=== PATIENT | male | born 1945 | race Caucasian/White ===

== ENCOUNTER 2018-08-12 06:04 | Day surgery (SDC) | payer MEDICARE, OTHER ==
[2018-08-12] MEDS ORDERED: DIPRIVAN 200 MG/20 ML IV ONE (06:05)
[2018-08-12] MEDS ORDERED: Ketamine HCl 50 MG/ML IV ONE (06:05)
[2018-08-12] MEDS: Lactated Ringers 1,000 ML IV SCH ×2 (06:41→06:42)
[2018-08-12 09:14] VITALS: O2SAT 97
[2018-08-12 09:36] VITALS: BP 93/54; PULSE 63
[2018-08-12] MEDS ORDERED: Lactated Ringers 1,000 ML IV ONE (09:47)
--- NOTE | 2018-08-14 10:05 | OP ---
SURGERY DATE/TIME: 08/12/2018 0823 PREOPERATIVE DIAGNOSIS: Ten year screening. The patient has also recent had some blood per rectum probably hemorrhoidal. POSTOPERATIVE DIAGNOSIS: Findings of four mild to moderate internal hemorrhoids. No polyps. No mucosal lesions. PROCEDURE: Colonoscopy complete to cecum. SURGEON: Yossi Crocker M.D. ANESTHESIA: MAC. COMPLICATIONS: None. CONDITION: Stable. INDICATION: A patient presents for ten year follow up. He recently has had some blood per rectum. DESCRIPTION OF PROCEDURE: He is taken to endoscopy. Left lateral decubitus position. Anal digital examination satisfactory. Prostate is not large and is smooth. He has had some prostate issues in the past year. Scope advanced to the cecum. Base of cecum, ileocecal valve and appendiceal orifice, ascending, hepatic, transverse, splenic, descending, sigmoid, rectum, anus, three to four mild to moderate size internal hemorrhoids. I think these clearly have been recently bleeding and were the source of the bleeding. There was some angulation and meandering of the sigmoid but there was minimal diverticulosis. No mucosal lesions. Follow up anticipated in ten years unless symptoms.
--- NOTE | 2018-08-14 11:22 | HP ---
DATE OF SURGERY: 08/12/2018 ADMISSION DIAGNOSIS: Blood in the stool. Ten year follow up. ANTICIPATED PROCEDURE: Colonoscopy. HISTORY OF PRESENT ILLNESS: The patient has hemorrhoids done some time ago. His last colonoscopy was ten years ago. He basically presents for screening but he has had a little bit of blood. PAST MEDICAL HISTORY: ALLERGIES: NONE. MEDICATIONS: Metoprolol, lisinopril, arthritic medicines. PAST SURGICAL HISTORY: Hemorrhoidectomy. Knee surgery. SOCIAL HISTORY: Negative. FAMILY HISTORY: Negative. REVIEW OF SYSTEMS: Hypertension. PHYSICAL EXAMINATION: VITAL SIGNS: Normal. CHEST: Clear. COR: Regular. ABDOMEN: Satisfactory. IMPRESSION/PLAN: Colonoscopy.
== END 2018-08-12 09:35 | disposition home or self-care (01) ==
LOC: SDC 06:04
PROVIDERS: ATTEND Surgery
DX: Z12.11 Encounter for screening for malignant neoplasm of colon (principal); K64.8 Other hemorrhoids; K92.1 Melena
CPT/HCPCS: 99100; J2704

== ENCOUNTER 2024-01-08 12:31 | Emergency (ER) | payer MEDICARE, OTHER ==
[2024-01-08 12:40] VITALS: TEMP 98.3
--- NOTE | 2024-01-08 13:15 | ERPHSYRPT ---
- History of Present Illness Time Seen by Provider: 01/08/24 13:00 Source: patient Exam Limitations: no limitations Patient Subjective Stated Complaint: Pt c/o of palpatations Triage Nursing Assessment: Pt brought to the ER by his , hypertensive, denies pain, pulses normal, skin n/w/d, no difficulty breathing, doesn't appear to be in any distress Physician History: The patient, with a long-standing history of irregular heartbeat, presents with a recurrence of the same. The patient has been managed on Metoprolol 5mg twice daily for years. Lisinopril was also part of the regimen but was discontinued a couple of months ago due to episodes of low blood pressure. The patient reports that the current episode of irregular heartbeat started around the same time he was put on Prednisone and Celebrex for shoulder pain. The patient has a history of shoulder injuries, with recent pain in one shoulder leading to the prescription of these medications. The patient also has a long-term history of taking Diclofenac for pain management. Timing/Duration: today Activities at Onset: rest Quality: other (na) Chest Pain Radiation: no radiation Severity of Pain-Max: none Severity of Pain-Current: none Modifying Factors: Worsens With: nothing Nitro Today/Relief: no nitro taken today Aspirin Treatment Today: no aspirin today Associated Symptoms: denies symptoms Prior Chest Pain/Cardiac Workup: no prior chest pain Allergies/Adverse Reactions: Penicillins Allergy (Intermediate, Verified 01/08/24 12:40) Hives Home Medications: Lisinopril 5 mg PO DAILY 04/05/12 [History] Omeprazole [Prilosec] 10 mg PO DAILY 04/05/12 [History] Aspirin 81 mg PO DAILY 04/10/15 [History] Celecoxib 200 mg PO BID 01/08/24 [History] Metoprolol Tartrate 50 mg [Lopressor 50 MG] 50 mg PO BID 01/08/24 [Hi story] Pravastatin Sodium 20 mg PO DAILY 01/08/24 [History] Tamsulosin HCl 0.4 mg [Flomax 0.4 MG] 0.4 mg PO DAILY 01/08/24 [History] Valacyclovir HCl [Valacyclovir] 500 mg PO DAILY 01/08/24 [History] Hx Influenza Vaccination/Date Given: Yes Hx Pneumococcal Vaccination/Date Given: No Travel Risk - International Travel Have you traveled outside of the country in past 3 weeks: No - Emerging Infectious Disease Are you exhibiting symptoms associated with any current EIDs: No - Review of Systems All Other Systems: Reviewed and Negative - Past Medical History Pertinent Past Medical History: Yes Neurological History: No Pertinent History ENT History: No Pertinent History Cardiac History: Arrhythmia, High Cholesterol, Hypertension Respiratory History: No Pertinent History Endocrine Medical History: No Pertinent History Musculoskeletal History: Osteoarthritis GI Medical History: GERD History: No Pertinent History Psycho-Social History: No Pertinent History Male Reproductive Disorders: No Pertinent History Other Medical History: A-FIB. RIGHT TOTAL KNEE 04/2022. LEFT ROTATOR CUFF REPAIR AND BICEPS TENODESIS 09/2021. - Past Surgical History Past Surgical History: Yes Neuro Surgical History: No Pertinent History Cardiac: No Pertinent History, Cardiac Catheterization Respiratory: No Pertinent History Gastrointestinal: Appendectomy, Hemorrhoidectomy Genitourinary: No Pertinent History Musculoskeletal: Orthopedic Surgery Male Surgical History: No Pertinent History Other Surgical History: bilateral knee repairs in - 60's,80's - Social History Smoking Status: Never smoker Exposure to second hand smoke: No Drug Use: none - Social Determinants of Health Will the patient participate in the screening: Yes Do you worry about a steady place to live?: No Do you have any problems with any of the following?: No known problems In the past 12 months,have you had to go without utilities?: No Transportation Issues: No Has anyone in your support network made you feel unsafe?: No Have you or anyone in your house had to go without enough: No - Nursing Vital Signs Nursing Vital Signs: Initial Vital Signs Pulse Rate 63 01/08/24 12:31 Respiratory Rate 14 01/08/24 12:31 Blood Pressure 168/100 01/08/24 12:31 O2 Sat by Pulse Oximetry 93 L 01/08/24 12:31 Pain Scale Pain Intensity 0 - Physical Exam General Appearance: no apparent distress Eye Exam: PERRL/EOMI Ears, Nose, Throat Exam: normal ENT inspection Neck Exam: normal inspection Respiratory Exam: normal breath sounds, lungs clear, airway intact, No respiratory distress Cardiovascular Exam: irregular, capillary refill <2 sec, No edema Gastrointestinal/Abdomen Exam: soft, No tenderness, No distention, No mass, No guarding, No rebound Extremity Exam: No swelling, No tenderness Neurologic Exam: alert, oriented x 3, cooperative Skin Exam: normal color, warm, dry, No rash SpO2 Interpretation: normal SpO2: 93 O2 Delivery: Room Air - Course Nursing assessment & vital signs reviewed: Yes Ordered Tests: Active Orders 24 hr Category Date Time Status Cutting Pressman STAT Care 01/08/24 13:08 Active IV Insertion STAT Care 01/08/24 13:07 Active CBC W DIFF Stat Lab 01/08/24 13:17 Completed CMP Stat Lab 01/08/24 13:17 Completed MAGNESIUM Stat Lab 01/08/24 13:17 Completed NT PRO BNPII Stat Lab 01/08/24 13:17 Completed TROPONIN Q4H Lab 01/08/24 13:17 Completed TROPONIN Q4H Lab 01/08/24 17:15 Ordered TROPONIN Q4H Lab 01/08/24 21:15 Ordered TSH [TSH, 3RD Generation] Stat Lab 01/08/24 13:17 Received Holter Monitor ONCE RT 01/08/24 15:07 Ordered Medication Summary Discontinued Medications Generic Name Dose Route Start Last Admin Trade Name Loydq PRN Reason Stop Dose Admin Enalaprilat 2.5 mg 01/08/24 13:09 01/08/24 13:22 Enalaprilat 2.5 Mg Injection IV 01/08/24 13:10 2.5 mg STAT ONE Administration Enalaprilat Confirm 01/08/24 13:19 Enalaprilat 2.5 Mg Injection Administered 01/08/24 13:20 Dose 2.5 mg IV .STK-MED ONE Sodium Chloride 1,000 mls @ 999 mls/hr 01/08/24 13:07 01/08/24 14:30 Sodium Chloride 0.9% 1000 Ml IV 01/08/24 14:07 Infused .Q1H1M STA Infusion Sodium Chloride Confirm 01/08/24 13:19 Sodium Chloride 0.9% 1000 Ml Administered 01/08/24 13:20 Dose 1,000 mls @ ud .ROUTE .STK-MED ONE Lab/Rad Data: Laboratory Result Diagrams 01/08/24 13:17 01/08/24 13:17 Laboratory Results 01/08/24 01/08/24 01/08/24 Range/Units 13:17 13:17 13:17 WBC 6.7 (4.23-9.07) x10^3/uL RBC 4.80 (4.63-6.08) x10^6/uL Hgb 15.7 (13.7-17.5) g/dL Hct 46.5 (40.1-51.0) % MCV 96.9 H (79.0-92.2) fL MCH 32.7 H (25.7-32.2) pg MCHC 33.8 (32.3-36.5) g/dL RDW 12.9 (11.6-14.4) % Plt Count 144 L (163-337) x10^3/uL MPV 9.9 (9.4-12.4) fL Gran % 69.8 H (34.0-67.9) % Immature Gran % (Auto) 1.8 H (0.001-0.429) % Nucleat RBC Rel Count 0.0 (0.00-0.2) % Eos # (Auto) 0 L (0.04-0.54) x10^3/uL Immature Gran # (Auto) 0.12 H (0.001-0.031) x10^3u/L Absolute Lymphs (auto) 1.19 L (1.32-3.57) x10^3/uL Absolute Monos (auto) 0.70 (0.30-0.82) x10^3/uL Absolute Nucleated RBC 0.00 (0.00-0.012) x10^3u/L Lymphocytes % 17.7 L (21.8-53.1) % Monocytes % 10.4 (5.3-12.2) % Eosinophils % 0.0 L (0.8-7.0) % Basophils % 0.3 (0.2-1.2) % Absolute Granulocytes 4.69 (1.78-5.38) x10^3/uL Basophils # 0.02 (0.01-0.08) x10^3/uL Sodium 139 (135-145) mmol/L Potassium 4.1 (3.5-5.1) mmol/L Chloride 105 (98-107) mmol/L Carbon Dioxide 24 (22-30) mmol/L Anion Gap 14.3 (5-15) MEQ/L BUN 28 H (9-20) mg/dL Creatinine 0.99 (0.66-1.25) mg/dL Estimated GFR 78.5 ML/MIN Glucose 99 (74-106) mg/dL Calcium 9.3 (8.4-10.2) mg/dL Magnesium 2.0 (1.6-2.3) mg/dL Total Bilirubin 1.40 H (0.2-1.3) mg/dL AST 26 (17-59) U/L ALT 25 (0-50) U/L Alkaline Phosphatase 67 (38-126) U/L Troponin I < 0.012 (0.000-0.033) ng/mL NT-Pro-B Natriuret Pep 679 (<300) pg/mL Serum Total Protein 6.9 (6.3-8.2) g/dL Albumin 4.2 (3.5-5.0) g/dL - Progress Progress: improved Air Movement: good Progress Note: EKG showed irregular rhythm with multiple PVCs. CBC neg, CMP remarkable for Bilirubin of 1.4, Troponin neg, BNP neg, TSH pending. Patient continues to have no other sxs besides palpitations which are less frequent now. Will place 72 hour holter monitor and recommend close follow up with cardio. If CP develops please return. Blood Culture(s) Obtained: No Antibiotics given: No Counseled pt/family regarding: lab results, diagnosis, need for follow-up Medical Desision Making - Diagnostic Testing Diagnostic test were ordered, analyzed, and reviewed by me: Yes Radiological Interpretation: Interpreted by me - Risk of complications Low Risk: Low risk of morbidity from additional dx testing or treatment - Departure Departure Disposition: Home Clinical Impression: Palpitations, Irregular cardiac rhythm Condition: Good Critical Care Time: No Referrals: MARNIE BELLO MD [Primary Care Provider] - Follow up/PCP as directed Instructions: Palpitations ED
[2024-01-08 13:18] LABS: Absolute Neutrophil Ct (ANC) 4.69 x10^3/uL (1.78-5.38); BASOPHIL % 0.3 % (0.2-1.2); Basophil (Absolute #) 0.02 x10^3/uL (0.01-0.08); Eosinophil (Absolute #) 0 x10^3/uL (0.04-0.54); Hematocrit 46.5 % (40.1-51.0); Hemoglobin 15.7 g/dL (13.7-17.5); IMMATURE GRAN # 0.12 x10^3u/L (0.001-0.031); IMMATURE GRAN % 1.8 % (0.001-0.429); Lymphocyte (Absolute #) 1.19 x10^3/uL (1.32-3.57); Lymphocytes % 17.7 % (21.8-53.1); Mean Cell Volume 96.9 fL (79.0-92.2); Mean Corpuscular Hemoglobin 32.7 pg (25.7-32.2); Mean Corpuscular Hgb Concent. 33.8 g/dL (32.3-36.5); Mean Platelet Volume 9.9 fL (9.4-12.4); Monocytes % 10.4 % (5.3-12.2); Neutrophil % 69.8 % (34.0-67.9); Platelet Count 144 x10^3/uL (163-337); Red Cell Distribution Width 12.9 % (11.6-14.4); White Blood Count 6.7 x10^3/uL (4.23-9.07)
[2024-01-08] MEDS ORDERED: Sodium Chloride 0.9% 1000 ML 1,000 ML ONE (13:19)
[2024-01-08] MEDS ORDERED: ENALAPRILAT 2.5 MG INJECTION IV ONE (13:19)
[2024-01-08] MEDS: ENALAPRILAT 2.5 MG INJECTION IV ONE (13:22)
[2024-01-08] MEDS: Sodium Chloride 0.9% 1000 ML 1,000 ML IV STA (13:22)
[2024-01-08 13:44] LABS: ALBUMIN 4.2 g/dL (3.5-5.0); ANION GAP 14.3 MEQ/L (5-15); BILIRUBIN,TOTAL 1.4 mg/dL (0.2-1.3); Calcium 9.3 mg/dL (8.4-10.2); Creatinine 1 0.99 mg/dL (0.66-1.25); EST GLOMERULAR FILTRATION RATE 78.5 ML/MIN; Potassium 4.1 mmol/L (3.5-5.1); Total Protein 6.9 g/dL (6.3-8.2)
[2024-01-08 15:12] VITALS: O2SAT 93
[2024-01-08 15:22] VITALS: BP 146/93; PULSE 58; RESP 20
== END 2024-01-08 15:27 | disposition home or self-care (01) ==
LOC: ED 12:31
DX: R00.2 Palpitations (principal)
CPT/HCPCS: 36000; 36415; 80053; 83735; 83880; 84443; 84484; 85025; 93041; 93242; 96374; 99284